=== PATIENT | female | born 1990 | race Caucasian/White ===

== ENCOUNTER 2020-01-19 18:07 | Emergency (ER) | payer BC, SELFPAY ==
--- NOTE | ~2020-01-19 | XR_ITS ---
EXAMINATION: XR wrist LT min 3V DATE: 01/19/2020 18:40 INDICATION: Left wrist pain TECHNIQUE: Posteroanterior, ulnar deviation, oblique, and lateral views of the left wrist were obtain ed. COMPARISON: None available FINDINGS: There is no fracture, dislocation, or subluxation. The bones, soft tissues, and joint space s are normal. IMPRESSION: 1. No acute osseous abnormality. Reviewed, dictated and finalized at location A.
--- NOTE | ~2020-01-19 | XR_ITS ---
EXAMINATION: XR finger 1st RT min 2V INDICATION: Right first finger pain TECHNIQUE: Three views of the right first finger are obtained. COMPARISON: None available FINDINGS: There is no fracture, dislocation, or subluxation. The bones, soft tissues, and joint space s are normal. IMPRESSION: 1. No acute osseous abnormality. Reviewed, dictated and finalized at location A.
--- NOTE | ~2020-01-19 | XR_ITS ---
EXAMINATION: XR humerus LT INDICATION: Left arm pain TECHNIQUE: Two views of the left humerus are obtained. COMPARISON: None available FINDINGS: There is no fracture, dislocation, or subluxation. The bones, soft tissues, and joint space s are normal. IMPRESSION: No acute osseous abnormality. Reviewed, dictated and finalized at location A.
--- NOTE | ~2020-01-19 | XR_ITS ---
EXAMINATION: XR hand LT min 3V INDICATION: Left hand pain TECHNIQUE: Three views of the left hand are obtained. COMPARISON: None available FINDINGS: There is no fracture, dislocation, or subluxation. The bones, soft tissues, and joint space s are normal. IMPRESSION: 1. No acute osseous abnormality. Reviewed, dictated and finalized at location A.
--- NOTE | ~2020-01-19 | XR_ITS ---
EXAMINATION: XR chest 2V DATE: 01/19/2020 19:20 INDICATION: Chest pain TECHNIQUE: PA and lateral views of the chest are obtained. COMPARISON: None available FINDINGS: The lungs are free of acute opacities. There is no pleural effusion or pneumothorax. The ca rdiomediastinal silhouette is normal. The visualized bones and soft tissues are unremarkable. IMPRESSION: 1. No acute cardiopulmonary abnormality. Reviewed, dictated and finalized at location A.
[2020-01-19 18:06] VITALS: BP 138/97; PULSE 95; RESP 17; TEMP 37.2; O2SAT 98
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
[2020-01-19] MEDS: TETANUS,DIPHTHERIA,AC PERTUSSIS ADULT 0.5 ML (ADACEL) IM (19:23)
[2020-01-19] MEDS: KETOROLAC 30 MG/ML VIAL (*BKC) IV PUSH (19:25)
[2020-01-19 20:31] VITALS: BP 121/85; PULSE 83; RESP 20; TEMP 36.6; O2SAT 98
== END 2020-01-19 20:40 | disposition home or self-care (01) ==
DX: S60.512A Abrasion of left hand, initial encounter (principal); V43.52XA Car driver injured in collision with other type car in traffic accident, initial encounter; Z23 Encounter for immunization
CPT/HCPCS: 71046; 73060; 73110; 73130; 73140; 90471; 90715; 96374; 99284; A9270; J1885

== ENCOUNTER 2020-10-04 06:58 | Outpatient (NON) | payer BC, SELFPAY ==
[2020-10-04 18:22] LABS: SARS-CoV-2 RNA PCR Negative
== END 2020-10-04 06:59 ==
PROVIDERS: PCP Emergency Medicine; Visit Provider Emergency Medicine
DX: R68.89 Other general symptoms and signs (principal); Z20.828 Contact with and (suspected) exposure to other viral communicable diseases
CPT/HCPCS: 87635; C9803; U0003

== ENCOUNTER 2023-09-22 11:53 | Emergency (ER) | payer BC, SELFPAY ==
--- NOTE | ~2023-09-22 | US_ITS ---
US OB <=14 wk fetus w TV 09/22/2023 14:30 Indication: Pelvic pain and bleeding. Evaluate for ectopic . Procedure: High-resolution Limited obstetrical ultrasound using transabdominal and endovaginal techni que Comparison: No prior studies for comparison. Findings: Uterus measures 7.1 x 3.7 x 4.7 cm. Endometrium measures 9 mm. No intrauterine gestational sac is seen. There is nabothian cysts. There is free fluid in the pelvis. Right ovary measures 5.3 x 3 x 2.5 cm with normal vascularity. There is a 3 cm right ovarian cyst. Left ovary measures 1.7 x 1.3 x 1.1 cm with normal vascularity. Impression: 1: No evidence for intrauterine . Differential diagnosis includes very early intrauterine pr egnancy, ectopic and failed . Recommend follow-up with serial quantitative beta-hC G levels and ultrasound as clinically indicated. 2: Right ovarian cyst measuring 3 cm. Reviewed, dictated and finalized at location B. [facility]IC [facility] REFEREE Impression: 1: No evidence for intrauterine . Differential diagnosis includes very early intrauterine , ectopic and failed . Recommen d follow-up with serial quantitative beta-hCG levels and ultrasound as clinical ly indicated. 2: Right ovarian cyst measuring 3 cm.
[2023-09-22 12:03] VITALS: BP 147/75; PULSE 87; RESP 20; TEMP 36.7; O2SAT 99
--- NOTE | 2023-09-22 12:34 | ED.ABDPAIN ---
HPI - Abdominal Pain General Chief Complaint: Abdominal Pain Stated Complaint: pelvic pain Time Seen by Provider: 09/22/23 12:12 Source: patient Mode of arrival: ambulatory Limitations: no limitations History of Present Illness HPI narrative: Patient is a 32-year-old female who presents to the ED with report of lower abdominal/ pelvic pain. Patient reports she developed pain this morning which progressively worsened after going to work where she also began experiencing vaginal bleeding. She then prompted here. She states LNMP was around 11/6. Patient is currently trying to conceive, but has not had a positive test yet. She has not tried anything for the pain. Reports some nausea, dysuria, denies vomiting. Denies fevers. Denies hematuria. Patient's bedside testing positive in the ED. , Hx of 1 previous micarriage. Related Data Home Medications Medication Instructions Recorded Confirmed vitamin no.167-folic acid tablet PO .QD 08/18/23 09/10/23 400 mcg-dha 25 mg chewable tablet (One-A-Day ) Allergies Allergy/AdvReac Type Severity Reaction Status Date / Time ciprofloxacin Allergy Unknown Rash Verified 09/22/23 12:13 Sulfa (Sulfonamide Allergy Unknown Anaphylactic Verified 09/22/23 12:13 Antibiotics) Shock Review of Systems Review of Systems: CONSTITUTIONAL: Denies fever, chills, or sweats. CARDIOVASCULAR: Denies chest pain. RESPIRATORY: Denies dyspnea. GASTROINTESTINAL: See HPI. GENITOURINARY: See HPI. All systems reviewed & are unremarkable except as noted in HPI and below PMFSH Past Medical History Medical History BMI 45.0-49.9, adult Depression Encounter for removal of intrauterine contraceptive device History of thrombocytopenia Lyme disease (~2015) Surgical History Surgical History H/O gastric sleeve History of gynecological procedure (~12/2019) steven iud insertion History of gynecological procedure (~11/2019) steven iud removal History of gynecological procedure (02/27/16) steven iud insertion Hx of dilation and curettage D&C - miscarriage @ 2 1/2 months S/P reconstruction of ligament of knee 2017 knee surgery MPFL reconstruction Family History Family History Grandparent Family history of lung cancer Father Family history of rheumatoid arthritis Mother Family history of osteoarthritis Other Diabetes mellitus Family history of arthritis Hypertension Social History Social History Smoking status: Never smoker Alcohol intake: former Alcohol use details: only 1-2 a year before Substance use: never Substance use type: does not use Lack of Transportation: No Lack of Food: Never True Current Housing: I Have Housing Concerned About Future Housing: No Difficulty Paying Gas/Electric Bills: YES Difficulty Paying for Meds: No Currently Unemployed: No Education: High School Diploma/GED Difficulty w/ Childcare or Family Care: No Living arrangements: with family Additional living arrangements comments: Occupation/Education: occupation 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 HEAD: Normocephalic, atraumatic. NECK: Supple. No adenopathy, no masses. RESPIRATORY: Airway patent, respirations nonlabored. Clear to auscultation bilaterally, no rales, rhonchi, wheezing. CARDIOVASCULAR: Regular rate and rhythm without murmurs, rubs, or gallops. Radial pulses 2+ an
[2023-09-22 12:49] LABS: Basophils Absolute Auto 0.1 K/mm3 (0.0-0.1); Basophils Percent Auto 0.6 % (0.2-1.2); Eosinophils Absolute Auto 0.1 K/mm3 (0-0.3); Eosinophils Percent Auto 1.2 % (0-4.4); Hematocrit 36.7 % (37.0-47.0); Hemoglobin 11.8 g/dL (12.0-15.0); Immature Granulocyte Absolute 0.03 K/mm3 (0.00-0.031); Immature Granulocyte Percent A 0.3 % (0-0.5); Lymphocytes Absolute Auto 1.77 K/mm3 (0.9-3.2); Lymphocytes Percent Auto 17.6 % (18.3-44.2); Mean Corpuscular HGB Conc 32.2 g/dl (32-36); Mean Corpuscular Hemoglobin 30.1 pg (26-34); Mean Corpuscular Volume 93.6 fl (80-100); Mean Platelet Volume 10.6 fl (7.4-10.4); Monocytes Absolute Auto 0.5 K/mm3 (0.1-0.6); Monocytes Percent Auto 5.2 % (2.6-8.5); Neutrophils Absolute Auto 7.6 K/mm3 (1.3-6.7); Neutrophils Percent Auto 75.1 % (45.5-73.1); Platelet Count Result 207 k/mm3 (150-375); Red Blood Count 3.92 M/mm3 (4.2-5.4); Red Cell Distribution Width 13.2 % (11.5-14.5); White Blood Count 10.1 K/mm3 (4.5-10.0)
[2023-09-22 12:53] LABS: Appearance Urine Turbid (Clear); Bacteria Urine 4+ /hpf; Bilirubin Urine Negative (Negative); Blood Urine 3+ (Negative); Color Urine Yellow (Yellow); Glucose Urine UA Negative (Negative); Ketones Urine Trace mg/dL (Negative); Leukocyte Esterase Ur 1+ LEU/UL (Negative); Nitrate Urine Positive (Negative); Non Pathogenic Casts 0-2; Protein Urine Negative (Negative); RBC Urine 51-100 /hpf (0-2); Specific Grav Ur 1.019 (1.001-1.035); Squamous Epithelial Cell Urine Moderate /hpf (Few); Urobilinogen Urine 0.2 mg/dL (<2.0)
[2023-09-22 12:59] LABS: Alanine Aminotransferase 22 U/L (6-35); Alkaline Phosphatase 107 U/L (38-126); Anion Gap 10 mmol/L (8-16); Aspartate Amino Transferase 29 U/L (14-36); Bilirubin,Total 0.9 mg/dL (0.2-1.3); Blood Urea Nitrogen 11 mg/dL (7-17); Calcium 9.1 mg/dL (8.4-10.2); Carbon Dioxide 24 mmol/L (22-30); Chloride 102 mmol/L (98-107); Estimated CRCL calculation 162 ml/min; Estimated Glomerular Filt Rate > 60; Glucose 96 mg/dL (65-110); Potassium 3.8 mmol/L (3.4-5.0); Sodium 136 mmol/L (137-145)
[2023-09-22] MEDS: SODIUM CHLORIDE 0.9% IV 1,000 ML 999 ML IV CONT (13:09)
[2023-09-22 13:15] LABS: Beta HCG Quantitative 585.84 mIU/ML
[2023-09-22 13:42] LABS: Add Urine Microscopic? YES
[2023-09-22 16:10] VITALS: BP 121/76; PULSE 75; RESP 20; O2SAT 99
== END 2023-09-22 16:11 | disposition home or self-care (01) ==
PROVIDERS: Emergency Provider Physician Assistant; PCP Family Medicine
DX: O20.0 Threatened abortion (principal); Z3A.00 Weeks of gestation of pregnancy not specified; O23.41 Unspecified infection of urinary tract in pregnancy, first trimester
CPT/HCPCS: 36415; 76801; 76817; 80053; 81001; 81025; 84702; 85025; 85461; 86850; 86900; 86901; 87077; 87086; 87186; 96361; 96365; 99284; J0696; J7030

== ENCOUNTER 2023-09-24 08:20 | Outpatient (CLI) | payer BC, SELFPAY | END 2023-09-24 08:21 | disposition home or self-care (01) | LOC: ANHLAB 08:22 | PROVIDERS: PCP Family Medicine; Visit Provider Physician Assistant | DX: O20.0 Threatened abortion (principal); Z3A.00 Weeks of gestation of pregnancy not specified | CPT/HCPCS: 36415; 84702 ==

== ENCOUNTER 2023-09-26 11:59 | Outpatient (CLI) | payer BC, SELFPAY | END 2023-09-26 12:00 | disposition home or self-care (01) | LOC: ANHLAB 12:00 | PROVIDERS: PCP Family Medicine; Visit Provider Obstetrics & Gynecology | DX: O20.0 Threatened abortion (principal); Z3A.00 Weeks of gestation of pregnancy not specified | CPT/HCPCS: 36415; 84702 ==

== ENCOUNTER 2023-09-29 15:56 | Outpatient (CLI) | payer BC, SELFPAY | END 2023-09-29 15:57 | disposition home or self-care (01) | LOC: ANHLAB 15:57 | PROVIDERS: Visit Provider Obstetrics & Gynecology | DX: O20.0 Threatened abortion (principal); Z3A.00 Weeks of gestation of pregnancy not specified | CPT/HCPCS: 36415; 84702 ==

== ENCOUNTER 2023-09-30 10:05 | Outpatient (CLI) | payer BC, SELFPAY ==
--- NOTE | ~2023-09-30 | US_ITS ---
US OB <=14 wk fetus w TV 09/30/2023 11:03 Indication: Threatened . Procedure: High-resolution early obstetrical ultrasound using transabdominal and transvaginal techniq ue Comparison: Ultrasound dated 09/22/2023 Findings: Uterus measures 6.7 x 3.7 x 2.9 cm. No evidence for gestational sac or pole. Endometr ium measures 7 mm. Right ovary measures 4.1 x 4.2 x 3.9 cm and contains a complicated septated 3.4 cm cyst. Left ovary is unremarkable measuring 2 x 1.8 x 1 cm. Small amount of free fluid in the posteri or cul-de-sac. Impression: 1: No evidence for intrauterine . Correlate with beta-hCG levels and follow-up ultrasound as clinically warranted. 2: Septated 3.4 cm right ovarian cyst. Reviewed, dictated and finalized at [facility]. END TESTER Impression: 1: No evidence for intrauterine . Correlate with beta-hCG levels and f ollow-up ultrasound as clinically warranted. 2: Septated 3.4 cm right ovarian cyst.
== END 2023-09-30 10:06 ==
PROVIDERS: PCP Family Medicine; Visit Provider Obstetrics & Gynecology
DX: O20.0 Threatened abortion (principal); Z3A.00 Weeks of gestation of pregnancy not specified; N83.201 Unspecified ovarian cyst, right side
CPT/HCPCS: 76801; 76817

== ENCOUNTER 2023-10-01 14:08 | Outpatient (CLI) | payer BC, SELFPAY ==
[2023-10-01 14:49] LABS: Basophils Absolute Auto 0.1 K/mm3 (0.0-0.1); Basophils Percent Auto 0.9 % (0.2-1.2); Eosinophils Absolute Auto 0.1 K/mm3 (0-0.3); Eosinophils Percent Auto 1.8 % (0-4.4); Hemoglobin 11.5 g/dL (12.0-15.0); Immature Granulocyte Absolute 0.02 K/mm3 (0.00-0.031); Immature Granulocyte Percent A 0.3 % (0-0.5); Lymphocytes Absolute Auto 1.69 K/mm3 (0.9-3.2); Lymphocytes Percent Auto 21.8 % (18.3-44.2); Mean Corpuscular HGB Conc 31.9 g/dl (32-36); Mean Corpuscular Hemoglobin 30.3 pg (26-34); Mean Platelet Volume 10.8 fl (7.4-10.4); Monocytes Absolute Auto 0.6 K/mm3 (0.1-0.6); Monocytes Percent Auto 7.6 % (2.6-8.5); Neutrophils Absolute Auto 5.2 K/mm3 (1.3-6.7); Neutrophils Percent Auto 67.6 % (45.5-73.1); Platelet Count Result 156 k/mm3 (150-375); Red Blood Count 3.79 M/mm3 (4.2-5.4); Red Cell Distribution Width 13.2 % (11.5-14.5); White Blood Count 7.8 K/mm3 (4.5-10.0)
[2023-10-01 14:57] LABS: Alanine Aminotransferase 25 U/L (6-35); Albumin Level 3.9 g/dL (3.5-5.1); Alkaline Phosphatase 93 U/L (38-126); Anion Gap 8 mmol/L (8-16); Aspartate Amino Transferase 25 U/L (14-36); Bilirubin,Total 0.8 mg/dL (0.2-1.3); Blood Urea Nitrogen 13 mg/dL (7-17); Calcium 8.8 mg/dL (8.4-10.2); Carbon Dioxide 24 mmol/L (22-30); Chloride 105 mmol/L (98-107); Estimated Glomerular Filt Rate > 60; Glucose 99 mg/dL (65-110); Potassium 3.8 mmol/L (3.4-5.0); Sodium 137 mmol/L (137-145)
== END 2023-10-01 14:09 | disposition home or self-care (01) ==
LOC: ANHLAB 14:09
PROVIDERS: Visit Provider Obstetrics & Gynecology
DX: O36.80X0 Pregnancy with inconclusive fetal viability, not applicable or unspecified (principal); Z3A.00 Weeks of gestation of pregnancy not specified
CPT/HCPCS: 36415; 80053; 84702; 85025

== ENCOUNTER 2023-10-03 12:49 | Outpatient (CLI) | payer BC, SELFPAY | END 2023-10-03 12:50 | disposition home or self-care (01) | LOC: ANHLAB 12:51 | PROVIDERS: Visit Provider Obstetrics & Gynecology | DX: O36.80X0 Pregnancy with inconclusive fetal viability, not applicable or unspecified (principal); Z3A.00 Weeks of gestation of pregnancy not specified | CPT/HCPCS: 36415; 84702 ==

== ENCOUNTER 2023-10-07 15:13 | Outpatient (CLI) | payer BC, SELFPAY | END 2023-10-07 15:14 | disposition home or self-care (01) | PROVIDERS: Visit Provider Obstetrics & Gynecology | DX: O36.80X0 Pregnancy with inconclusive fetal viability, not applicable or unspecified (principal) | CPT/HCPCS: 36415; 84702 ==

== ENCOUNTER 2023-10-14 15:26 | Outpatient (CLI) | payer BC, SELFPAY | END 2023-10-14 15:27 | disposition home or self-care (01) | LOC: ANHLAB 15:27 | PROVIDERS: Visit Provider Obstetrics & Gynecology | DX: O36.80X0 Pregnancy with inconclusive fetal viability, not applicable or unspecified (principal) | CPT/HCPCS: 36415; 84702 ==

== ENCOUNTER 2023-10-29 15:03 | Outpatient (RCR) | payer BC, SELFPAY ==
[2023-10-21 17:07] LABS: Beta HCG Quantitative 112.62 mIU/ML
[2023-10-29 16:03] LABS: Beta HCG Quantitative 31.28 mIU/ML
== END 2024-01-19 23:59 | disposition home or self-care (01) ==
LOC: ANHLAB 15:03
PROVIDERS: Visit Provider Obstetrics & Gynecology
DX: O02.1 Missed abortion (principal)
CPT/HCPCS: 36415; 84702

== ENCOUNTER 2023-11-10 15:28 | Outpatient (CLI) | payer BC, SELFPAY ==
--- NOTE | ~2023-11-10 | XR_ITS ---
EXAMINATION: XR abdomen/kub 1V DATE: 11/10/2023 15:50 INDICATION: Unspecified abdominal pain. TECHNIQUE: A supine view of the abdomen on 2 radiographs was obtained. COMPARISON: CT dated 08/07/2013 FINDINGS: Moderate amount of stool scattered throughout the colon. No dilated loops of gas-filled bowel to sugg est obstruction. No suspicious calcifications in the abdomen or pelvis. Mild lumbar levocurvature wit h mild spondylosis. IMPRESSION: 1. Normal bowel gas pattern. Reviewed, dictated and finalized at location A. ENFORCEMENT DIRECTOR
== END 2023-11-10 15:29 ==
PROVIDERS: PCP Nurse Practitioner Family; Visit Provider Nurse Practitioner Family
DX: R10.9 Unspecified abdominal pain (principal)
CPT/HCPCS: 74018

== ENCOUNTER 2023-11-10 15:49 | Outpatient (CLI) | payer BC, SELFPAY ==
[2023-11-10 20:30] LABS: Alanine Aminotransferase 18 U/L (6-35); Alkaline Phosphatase 96 U/L (38-126); Anion Gap 7 mmol/L (8-16); Aspartate Amino Transferase 32 U/L (14-36); Bilirubin,Total 0.8 mg/dL (0.2-1.3); Blood Urea Nitrogen 21 mg/dL (7-17); Calcium 9.2 mg/dL (8.4-10.2); Carbon Dioxide 28 mmol/L (22-30); Chloride 102 mmol/L (98-107); Estimated Glomerular Filt Rate > 60; Glucose 89 mg/dL (65-110); Potassium 4.1 mmol/L (3.4-5.0); Sodium 137 mmol/L (137-145)
[2023-11-10 21:04] LABS: Beta HCG Quantitative 4.19 mIU/ML
[2023-11-11 06:13] LABS: Platelet Count Result 251 k/mm3 (150-375); White Blood Count 10.3 K/mm3 (4.5-10.0)
== END 2023-11-10 15:50 | disposition home or self-care (01) ==
LOC: ANHGOSHLAB 15:54
PROVIDERS: PCP Nurse Practitioner Family; Visit Provider Obstetrics & Gynecology
DX: O36.80X0 Pregnancy with inconclusive fetal viability, not applicable or unspecified (principal); R10.9 Unspecified abdominal pain; Z3A.00 Weeks of gestation of pregnancy not specified
CPT/HCPCS: 36415; 80053; 84702; 85025

== ENCOUNTER 2024-01-06 04:15 | Emergency (ER) | payer BC, SELFPAY ==
[2024-01-06 04:25] VITALS: BP 125/87; PULSE 77; RESP 18; TEMP 36.3; O2SAT 99
[2024-01-06 06:39] VITALS: BP 107/64; PULSE 81; RESP 12; O2SAT 100
--- NOTE | 2024-01-06 07:15 | ED.SKABFB ---
HPI - Skin/Abscess/Foreign Bdy General Chief complaint: Skin/Abscess/Foreign Body Stated complaint: allergic reaction Time Seen by Provider: 01/06/24 07:05 History of Present Illness HPI narrative: Patient is a healthy 33-year-old female here with concern for multiple spider bites. She states that around 3:00 a.m. this morning she woke up to a sharp pricking sensation in her left upper extremity. She woke up and noted multiple welts over her left upper extremity, abdomen, legs. She then noted that she had some hives over her chest. She notes that the hives and the bites over her trunk and lower extremity all seemed to have resolved. She is currently complaining of significant pain, redness, warmth to the left bicep region. She denies history of prior cellulitis or abscesses. She denies any associated fever chills. She has not taken anything for the symptoms. She does note that she found a spider in her bed and believes that it likely bit her causing her symptoms. Related Data Allergies Allergy/AdvReac Type Severity Reaction Status Date / Time ciprofloxacin Allergy Unknown Rash Verified 11/07/23 11:39 Sulfa (Sulfonamide Allergy Unknown Anaphylactic Verified 11/07/23 11:39 Antibiotics) Shock Review of Systems Review of Systems: All systems reviewed & are unremarkable except as noted in HPI and below PMFSH Past Medical History Medical History BMI 45.0-49.9, adult Depression Encounter for removal of intrauterine contraceptive device History of thrombocytopenia Lyme disease (~2015) Missed Surgical History Surgical History H/O gastric sleeve History of gynecological procedure (~12/2019) steven iud insertion History of gynecological procedure (~11/2019) steven iud removal History of gynecological procedure (02/27/16) steven iud insertion Hx of dilation and curettage D&C - miscarriage @ 2 1/2 months S/P reconstruction of ligament of knee 2017 knee surgery MPFL reconstruction Family History Family History Grandparent Family history of lung cancer Father Family history of rheumatoid arthritis Mother Family history of osteoarthritis Other Diabetes mellitus Family history of arthritis Hypertension Social History Social History Smoking status: Never smoker Alcohol intake: former Alcohol use details: only 1-2 a year before Substance use: never Substance use type: does not use Lack of Transportation: No Lack of Food: Never True Current Housing: I Have Housing Concerned About Future Housing: No Difficulty Paying Gas/Electric Bills: YES Difficulty Paying for Meds: No Currently Unemployed: No Education: High School Diploma/GED Difficulty w/ Childcare or Family Care: No Living arrangements: with family Additional living arrangements comments: Occupation/Education: occupation Additional occupation/education comments: [employer] Gender identity (if verbalized by the patient): Female Sexual Orientation (if Verbalized by the Patient): Straight or Heterosexual Exam Narrative: GENERAL: Well-appearing, well-nourished, and in no acute distress. HEAD: Normocephalic, atraumatic. EYES: PERRLA and EOMI. ENT: Nares clear. Mucous membranes moist. NECK: Supple. CHEST: Clear to auscultation. No respiratory distress. HEART: Regular rate and rhythm. Normal peripheral pulses. ABDOMEN: Soft, nontender, nondistended. EXTREMITIES: Normal range of motion. No edema. SKIN: Warm, dry, no rash Appreciated over chest. No lesions appreciated over trunk or lower extremities. Patient has a 2 cm circular area of erythema and tenderness over the distal right biceps region. Normal range of motion of the upper extremity with strong
== END 2024-01-06 08:02 | disposition home or self-care (01) ==
LOC: ANHED 07:50
PROVIDERS: Emergency Provider Student in an Organized Health Care Education/Training Program; PCP Nurse Practitioner Family
DX: L03.114 Cellulitis of left upper limb (principal)
CPT/HCPCS: 99283

== ENCOUNTER 2024-12-29 08:56 | Outpatient (CLI) | payer OTHER, SELFPAY ==
--- NOTE | ~2024-12-29 | US_ITS ---
EXAM: ABDOMEN ULTRASOUND HISTORY: R10.11 - Right upper quadrant pain COMPARISON: None FINDINGS: LIVER: The liver is unremarkable in echogenicity and size measuring 15cm in longitudinal dimension. The portal vein is patent demonstrating hepatopedal flow. The contour of the liver surface is smooth GALLBLADDER: No stones are identified within the gallbladder. Layering sludge is noted. No gallbladder wall thickening or pericholecystic fluid. BILE DUCTS: Common bile duct measures 3.7mm. PANCREAS: Limited evaluation of the pancreas secondary to overlying bowel gas SPLEEN: The spleen is unremarkable in echogenicity and size measuring 10.6cm in longitudinal dimensio n. RIGHT KIDNEY: 10.6 cm. In length. No hydronephrosis or bulky renal calculi. An anechoic avascular well-circumscribed structure is identified within the interpolar region of the right kidney consistent with a simple cyst measuring 11 x 12 x 8 mm. LEFT KIDNEY: 11cm in length. No hydronephrosis or renal calculi. VASCULATURE : The abdominal aorta is nonaneurysmal. The IVC is patent. IMPRESSION: Evaluation of the pancreas is limited by overlying bowel gas. Simple cyst within the right kidney for which no further follow-up is needed. Otherwise, unremarkable sonographic evaluation of the abdomen, as detailed above. Reviewed, dictated and finalized at location A. NOSTIC MEDICAL SONOGRAPHER IMPRESSION: Evaluation of the pancreas is limited by overlying bowel gas. Simple cyst within the right kidney for which no further follow-up is needed. Otherwise, unremarkable sonographic evaluation of the abdomen, as detailed silas bolden.
== END 2024-12-29 08:57 | disposition home or self-care (01) ==
PROVIDERS: PCP Family Medicine; Visit Provider Physician Assistant Medical
DX: R14.0 Abdominal distension (gaseous) (principal); N28.1 Cyst of kidney, acquired
CPT/HCPCS: 76700

== ENCOUNTER 2024-12-29 09:23 | Outpatient (CLI) | payer OTHER, SELFPAY ==
[2024-12-29 19:47] LABS: Basophils Absolute Auto 0.1 K/mm3 (0.0-0.1); Basophils Percent Auto 0.7 % (0.2-1.2); Eosinophils Absolute Auto 0.1 K/mm3 (0-0.3); Eosinophils Percent Auto 1.3 % (0-4.4); Immature Granulocyte Absolute 0.02 K/mm3 (0.00-0.031); Immature Granulocyte Percent A 0.3 % (0-0.5); Lymphocytes Absolute Auto 1.97 K/mm3 (0.9-3.2); Lymphocytes Percent Auto 29.2 % (18.3-44.2); Mean Corpuscular HGB Conc 32.5 g/dl (32-36); Mean Corpuscular Hemoglobin 30.2 pg (26-34); Mean Corpuscular Volume 92.8 fl (80-100); Mean Platelet Volume 10.4 fl (7.4-10.4); Monocytes Absolute Auto 0.6 K/mm3 (0.1-0.6); Monocytes Percent Auto 9.3 % (2.6-8.5); Neutrophils Percent Auto 59.2 % (45.5-73.1); Platelet Count Result 173 k/mm3 (150-375); Red Blood Count 4.31 M/mm3 (4.2-5.4); Red Cell Distribution Width 13.4 % (11.5-14.5); White Blood Count 6.8 K/mm3 (4.5-10.0)
[2024-12-29 21:06] LABS: Alanine Aminotransferase 101 U/L (6-35); Alkaline Phosphatase 81 U/L (38-126); Amylase 77 U/L (30-110); Anion Gap 5 mmol/L (4-12); Aspartate Amino Transferase 91 U/L (14-36); Bilirubin,Total 1.4 mg/dL (0.2-1.3); Blood Urea Nitrogen 16 mg/dL (7-17); Carbon Dioxide 32 mmol/L (22-30); Chloride 98 mmol/L (98-107); Estimated Glomerular Filt Rate > 60; Glucose 72 mg/dL (65-110); Lipase 106 U/L (23-300); Potassium 4.2 mmol/L (3.4-5.0); Sodium 135 mmol/L (137-145)
== END 2024-12-29 09:24 | disposition home or self-care (01) ==
LOC: ANHGOSHLAB 09:34
PROVIDERS: PCP Family Medicine; Visit Provider Physician Assistant Medical
DX: R10.11 Right upper quadrant pain (principal)
CPT/HCPCS: 36415; 80053; 82150; 83690; 85025

== ENCOUNTER 2025-09-15 11:21 | Outpatient (CLI) | payer OTHER, SELFPAY ==
--- OUTSIDE RECORDS SUMMARY | 2025-09-15 12:31 | XMS_ITS | Clinical Summary ---
Author Organization [facility] Address [address] [place] [id number] Care Team Providers Care Vehicle Modification Technician Name Role Phone Unavailable Primary Care Provider Unavailabl e Medications No known medications Active Problems No known active problems Social History Tobacco Use Types Packs/Day Years Used Date Smoking Tobacco: Never Smokeless Tobacco: Never Tobacco Cessation:Counseling Given: Yes Alcohol Use Standard Drinks/Week Comments Never 0 (1 standard drink = 0.6 oz pur e alcohol) Alcohol Use Answer Date Recorded Frequency of Alcohol Consumption Not on file 05/15/2024 Average Number of Drinks Not on file 024 Frequency of Binge Drinking Not on file 05/03 Alcohol Use Status Never 05/15/2024 Average alcohol consumption Not on file 05/03 Comments Unknown Sex and Gender Information Value Date Recorded Sex Assigned at Not on file Legal Sex Female 4:41 PM CDT Gender Identity Not on file Sexual Orientation Not on file Last Filed Vital Signs Vital Sign Reading Time Taken Comments Blood Pressure 120/82 05/15/2024 4:53 PM CDT Pulse 76 05/15/2024 4:53 PM CDT Temperature 36.1 C (97 F) 05/15/2024 4:53 PM CDT Respiratory Rate 16 05/15/2024 4:53 PM CDT Oxygen Saturation 98% 05/15/2024 4:53 PM CDT Inhaled Oxygen Concentration - - Weight 126.1 kg (278 lb) 05/15/2024 4:53 PM CDT Height 170.2 cm (5' 7) 05/15/2024 4:53 PM CDT Body Mass Index 43.54 05/15/2024 4:53 PM CDT Plan of Treatment Health Maintenance Due Date Last Done Comments HIV Screening 1988 Hepatitis C Screening ages 1 8 to 79 once 1988 MMR VACCINES (1 of 1 - Stand loreto series) 1989 YEARLY WELLNESS EXAM 1991 DEPRESSION SCREENING 2000 Varicella Vaccine (1 of 2 - 13+ 2-dose series) 2001 HPV VACCINES (1 - 3-dose series) 2003 ADULT TETANUS 2007 HEPATITIS B VACCINES (1 of 3 - 19+ 3-dose series) 2007 CERVICAL CANCER SCREENING 2009 Influenza Vaccine 06/03/2025 COVID-19 Immunization (1 - 2 024-25 season) 2025 Zoster Vaccine (Recombinant Vaccine) (1 of 2) 2038 HEPATITIS A VACCINES Aged Out No long er eligible based on patient's age to complete this topic HIB VACCINES Aged Out No longer eligi ble based on patient's age to complete this topic IPV VACCINES Aged Out No longer eligi ble based on patient's age to complete this topic MENINGOCOCCAL VACCINE Aged Out No bobby sonya eligible based on patient's age to complete this topic Meningococcal B Vaccine Aged Out No l onger eligible based on patient's age to complete this topic Pneumococcal Vaccine: Peds t o 50 & At-Risk Patients Aged Out No longer eligible b ased on patient's age to complete this topic ROTAVIRUS VACCINES Aged Out No longer eligible based on patient's age to complete this topic
[2025-09-15 12:32] LABS: Beta HCG Quantitative 103.23 mIU/ML
[2025-09-15 12:46] LABS: Hepatitis B Surface Antigen Negative (Negative); Syphilis IgG/IgM Antibody Non-Reactive (Nonreactive)
[2025-09-15 13:03] LABS: HIV 1/2 Ab P24 Ag Result Negative (Negative)
[2025-09-15 16:44] LABS: Hematocrit 38.4 % (37.0-47.0); Hemoglobin 12.6 g/dL (12.0-15.0); Immature Granulocyte Percent A 0.3 % (0-0.5); Lymphocytes Absolute Auto 2.10 K/mm3 (0.9-3.2); Mean Corpuscular HGB Conc 32.8 g/dl (32-36); Mean Corpuscular Hemoglobin 30.1 pg (26-34); Mean Corpuscular Volume 91.6 fl (80-100); Nucleated Red Blood Cells Absolute Auto 0.000 K/mm3 (0.0-0.012); Nucleated Red Blood Cells Perc 0.0 % (0.0-0.2); Platelet Count Result 198 k/mm3 (150-375); Red Blood Count 4.19 M/mm3 (4.2-5.4); White Blood Count 10.2 K/mm3 (4.5-10.0)
[2025-09-16 06:08] LABS: Varicella-Zoster Ab, IgG Reactive (Non Reactive)
[2025-09-16 09:08] LABS: Cytomegalovirus (CMV) Ab, IgG <0.60 U/mL (0.00-0.59)
[2025-09-19 11:09] LABS: Parvovirus B19, IgG 5.7 index (0.0-0.8); Parvovirus B19, IgM 0.2 index (0.0-0.8)
== END 2025-09-15 11:22 | disposition home or self-care (01) ==
LOC: ANHLAB 11:24
PROVIDERS: PCP Family Medicine; Visit Provider Obstetrics & Gynecology
DX: N91.2 Amenorrhea, unspecified (principal)
CPT/HCPCS: 36415; 84702; 85025; 86593; 86644; 86703; 86747; 86762; 86787; 86850; 86900; 86901; 87086; 87186; 87340; G0432

== ENCOUNTER 2025-09-19 10:22 | Outpatient (CLI) | payer OTHER, SELFPAY | END 2025-09-19 10:23 | disposition home or self-care (01) | PROVIDERS: PCP Family Medicine; Visit Provider Obstetrics & Gynecology | DX: N92.6 Irregular menstruation, unspecified (principal) | CPT/HCPCS: 36415; 84702 ==

== ENCOUNTER 2025-09-23 12:04 | Outpatient (CLI) | payer OTHER, SELFPAY ==
--- OUTSIDE RECORDS SUMMARY | 2025-09-23 12:07 | XMS_ITS | Clinical Summary ---
Author Organization [facility] Address [address] [place] [id number] Care Team Providers Care Rabies Inspector Name Role Phone Unavailable Primary Care Provider [...]
== END 2025-09-23 12:05 | disposition home or self-care (01) ==
LOC: ANHLAB 12:05
PROVIDERS: PCP Family Medicine; Visit Provider Obstetrics & Gynecology
DX: N92.6 Irregular menstruation, unspecified (principal)
CPT/HCPCS: 36415; 84702

== ENCOUNTER 2025-09-28 10:18 | Outpatient (CLI) | payer OTHER, SELFPAY ==
--- OUTSIDE RECORDS SUMMARY | 2025-09-28 11:00 | XMS_ITS | Clinical Summary ---
Author Organization [facility] Address [address] [place] [id number] Care Team Providers Care Disassembler Product Name Role Phone Unavailable Primary Care Provider [...]
== END 2025-09-28 10:19 | disposition home or self-care (01) ==
LOC: ANHLAB 10:19
PROVIDERS: PCP Family Medicine; Visit Provider Obstetrics & Gynecology
DX: O20.0 Threatened abortion (principal); Z3A.00 Weeks of gestation of pregnancy not specified
CPT/HCPCS: 36415; 84702

== ENCOUNTER 2025-10-05 06:51 | Outpatient (CLI) | payer OTHER, SELFPAY | END 2025-10-05 06:52 | disposition home or self-care (01) | PROVIDERS: PCP Family Medicine; Visit Provider Obstetrics & Gynecology | DX: N91.2 Amenorrhea, unspecified (principal) | CPT/HCPCS: 36415; 84702 ==

== ENCOUNTER 2025-10-06 11:21 | Outpatient (CLI) | payer OTHER, SELFPAY | END 2025-10-06 11:22 | disposition home or self-care (01) | PROVIDERS: PCP Family Medicine; Visit Provider Obstetrics & Gynecology | DX: N39.0 Urinary tract infection, site not specified (principal) | CPT/HCPCS: 87077; 87086; 87186 ==

== ENCOUNTER 2025-10-17 00:31 | Day surgery (SDC) | payer OTHER, SELFPAY ==
[2025-10-13 15:24] VITALS: BMI 43.1
--- NOTE | 2025-10-13 15:32 | PC.NURSE ---
[facility] has started construction of its new state of the art ER which will open Spring 2026. With this, we anticipate parking may be a challenge for some our surgical patients and families. Parking spaces are limited but are available for all Surgical, obstetrics, and ER patients sharing this lot. If you arrive and find you are having a hard time finding a parking space, please note that we understand the challenges, please drive around the hospital and park near Hospital Entrance 1. When you enter this entrance, you can ask a volunteer to direct or take you back to the surgical waiting area to check in. We appreciate everyone?s understanding of these expected challenges while we build for your future. Report to the Outpatient Waiting Room, entrance under the green pavilion located off [facility] [address], at time 0600_ on date _10/17/25_. Planned Procedure Time: 0730_.? Time changes happen often and if your time is changed the preop area will call you the afternoon before. - You and your visitor will be asked to self-screen and do not enter if you have any COVID symptoms. Please call surgeon if you need to reschedule. - A mask is optional within the hospital at this time. Patients may have clear liquids (water, carbonated beverages, clear teas, apple juice) until 3 hours prior to surgery with a maximum of 20 ounces. - No food from midnight until time of surgery and no smoking, or chewing tobacco (or any form of nicotine). No chewing gum, candy or mints. Take only the following medications with a SIP of water on the morning of surgery: ___NONE DO NOT STOP ANY OF YOUR OTHER PRESCRIPTION MEDICATIONS PRIOR TO SURGERY EXCEPT THE FOLLOWING Hold all vitamins and supplements for 3 days per anesthesiologist. Medications to discontinue per physician Date to take last dose Please no make-up, nail samoan, hairspray, perfume, deodorant, or body powder the day of surgery.? No jewelry (including any body piercings) or valuables the day of surgery, leave them at home.? Please take a shower or bath the night before, or the morning of, surgery with an antibacterial soap.? Wear comfortable, loose fitting clothing.? Children are encouraged to wear pajamas. - Jewelry must be removed prior to entering the operating room.? Rings and piercings that are not removed may be cut off. - The hospital will not accept responsibility for valuables.? - Please leave all valuables, including medications, at home the day of surgery. If you are going home after surgery, a licensed truck driver rubbish collector must drive you home.? - NO public transportation without another adult if you receive anesthesia. - We recommend that an adult stay with you for 24 hours following discharge. - We also recommend that you do not drive, make important decision, drink alcoholic beverages, or take any drugs that were not prescribed by your health care provider for at least 24 hours after your discharge time. For Pediatric surgeries, we recommend two adults accompany the child home. Follow any additional instructions given to you from your surgeon. Telephone instructions given to PATIENT_and asked if any additional questions and then verbalized understanding. Patient advised to call surgeon office or pre surgery nurse liaison [phone] if any additional questions.
--- NOTE | 2025-10-14 13:29 | PM.IMHP2 ---
H&P: HPI History of Present Illness Date/Time: 10/14/25 13:29 [age] old female presents for suction curettage for missed . She had inappropriately rising HCG levels and recent ultrasound showed 6 week with no cardiac activity. Chief Complaint: Missed Review of Systems Review of Systems: All systems reviewed & are unremarkable except as noted in HPI and below PMFSH Past Medical History Medical History Psoriasis Eczema Brown recluse spider bite Missed BMI 45.0-49.9, adult Depression Lyme disease (~2015) Encounter for removal of intrauterine contraceptive device History of thrombocytopenia Surgical History Surgical History History of gynecological procedure (02/27/16) steven iud insertion History of gynecological procedure (~11/2019) steven iud removal History of gynecological procedure (~12/2019) steven iud insertion Hx of dilation and curettage D&C - miscarriage @ 2 1/2 months H/O gastric sleeve S/P reconstruction of ligament of knee 2017 knee surgery MPFL reconstruction Family History Family History Grandparent Family history of lung cancer Father Family history of rheumatoid arthritis Leukemia Mother Family history of osteoarthritis Other Diabetes mellitus Family history of arthritis Hypertension Social History Social History Smoking status: Never smoker Second hand tobacco smoke exposure: No Alcohol intake: former Alcohol use details: 3 TIMES PER YEAR Substance use: never Substance use type: does not use Lack of Transportation: No Lack of Food: Never True Current Housing: I Have Housing Concerned About Future Housing: No Difficulty Paying Gas/Electric Bills: No Difficulty Paying for Meds: No Currently Unemployed: No Education: High School Diploma/GED Difficulty w/ Childcare or Family Care: No Living arrangements: with family Additional living arrangements comments: Occupation/Education: occupation 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 Gender identity (if verbalized by the patient): Female Sexual Orientation (if Verbalized by the Patient): Straight or Heterosexual Meds Home Medications and Allergies Home Medications ?Medication ?Instructions ?Recorded ?Confirmed ?Type vits no.126-ferrous fum 1 tablet PO DAILY 09/15/25 10/13/25 History 28 mg iron-folic acid 800 mcg tablet (Classic ) amoxicillin 500 mg-potassium 1 tablet PO Q12H #20 tabs 10/10/25 10/13/25 Rx clavulanate 125 mg tablet (Augmentin) Allergies Allergy/AdvReac Type Severity Reaction Status Date / Time azithromycin Allergy Severe Other Verified 10/13/25 15:23 ciprofloxacin Allergy Unknown Rash Verified 10/13/25 15:23 Sulfa (Sulfonamide Allergy Unknown Anaphylactic Verified 10/13/25 15:23 Antibiotics) Shock vancomycin AdvReac Severe Redness of Verified 10/13/25 15:23 Skin Exam Const: General: cooperative and healthy appearing Resp: Effort & Inspection: normal respiratory effort Auscultation: clear to auscultation bilaterally Cardio: Rate: regular rate Rhythm: regular rhythm GI: Inspection: normal to inspection Auscultation: normal bowel sounds : External Female Exam: normal external appearance Speculum Exam - Vagina: normal appearance of the vagina Speculum Exam - Cervix: normal appearance of the cervix Bimanual exam- vagina & uterus: enlarged (6-8 week size) Bimanual Exam- Adnexa, other: normal adnexae Assessment and Plan Assessment and plan (1) Missed with demise before 20 completed weeks of gestation: Code(s): O02.1 - Missed Status: Acute Assessment and Plan: Proceed with suction curettage
--- OUTSIDE RECORDS SUMMARY | 2025-10-17 00:34 | XMS_ITS | Clinical Summary ---
Author Organization [facility] Address [address] [place] [id number] Care Team Providers Care Leak Patcher Name Role Phone Unavailable Primary Care Provider [...]
--- NOTE | 2025-10-17 06:46 | P.PNAN_ITS ---
Anes - Initial Pre Proc Eval Procedure: Operation Date: 10/17/25 07:30 Proposed Procedures p Suction Dilation and Curettage - Cristian Peng MD Date/Time: 10/17/25 06:46 Surgeon: Cristian Peng MD Pre Op Diagnosis: missed ab Patient Data Age: 35 Gender: F Height: 1.7 m Weight: 125 kg Allergies Allergy/AdvReac Type Severity Reaction Status Date / Time azithromycin Allergy Severe Other Verified 10/13/25 15:23 ciprofloxacin Allergy Unknown Rash Verified 10/13/25 15:23 Sulfa (Sulfonamide Allergy Unknown Anaphylactic Verified 10/13/25 15:23 Antibiotics) Shock vancomycin AdvReac Severe Redness of Verified 10/13/25 15:23 Skin Home Medications ?Medication ?Instructions ?Recorded ?Confirmed ?Type vits no.126-ferrous fum 1 tablet PO DAILY 10/13/25 History 28 mg iron-folic acid 800 mcg tablet (Classic ) amoxicillin 500 mg-potassium 1 tablet PO Q12H #20 tabs 10/10/25 10/13/25 Rx clavulanate 125 mg tablet (Augmentin) Patient hx anesthesia problems: none Family hx anesthesia problems: none Results Review: All pre-operative results and documents have been reviewed as part of the pre- operative evaluation. [facility] Past Medical History Medical History Psoriasis Eczema Brown recluse spider bite Missed BMI 45.0-49.9, adult Depression Lyme disease (~2015) Encounter for removal of intrauterine contraceptive device History of thrombocytopenia Surgical History Surgical History History of gynecological procedure (02/27/16) steven iud insertion History of gynecological procedure (~11/2019) steven iud removal History of gynecological procedure (~12/2019) steven iud insertion Hx of dilation and curettage D&C - miscarriage @ 2 1/2 months H/O gastric sleeve S/P reconstruction of ligament of knee 2017 knee surgery MPFL reconstruction Family History Family History Grandparent Family history of lung cancer Father Family history of rheumatoid arthritis Leukemia Mother Family history of osteoarthritis Other Diabetes mellitus Family history of arthritis Hypertension Social History Social History Smoking status: Never smoker Second hand tobacco smoke exposure: No Alcohol intake: former Alcohol use details: 3 TIMES PER YEAR Substance use: never Substance use type: does not use Lack of Transportation: No Lack of Food: Never True Current Housing: I Have Housing Concerned About Future Housing: No Difficulty Paying Gas/Electric Bills: No Difficulty Paying for Meds: No Currently Unemployed: No Education: High School Diploma/GED Difficulty w/ Childcare or Family Care: No Living arrangements: with family Additional living arrangements comments: Occupation/Education: occupation 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 Gender identity (if verbalized by the patient): Female Sexual Orientation (if Verbalized by the Patient): Straight or Heterosexual Anes - Eval Final PreProcedure Day of Procedure 10/17/25 06:46 Patient weight: morbidly obese Heart: regular rate and rhythm Lungs: clear to auscultation Airway: Mallampati scale class II Neurological: alert and oriented Last oral intake: >/= 8 hours ASA classification: III Emergent: no Anesthetic plan: proceed Anesthesia type and monitoring: general GIVS and standard monitoring Results Review: All pre-operative results and documents have been reviewed as part of the pre- operative evaluation. Informed Consent: The patient's anesthetic plan and its attendant risks and benefits were discussed with the patient/family/POA. Questions were solicited and answers provided to the satisfaction of the patient/family/POA.
[2025-10-17 07:00] VITALS: BP 129/63; PULSE 76; RESP 16; TEMP 36.7; O2SAT 100
[2025-10-17] MEDS: LACTATED RINGERS 1,000 ML 30 ML IV CONT (07:00)
[2025-10-17] MEDS: ACETAMINOPHEN 500 MG TABLET 1000 MG PO (07:00)
--- NOTE | 2025-10-17 07:25 | WPDHPUPDATE1 ---
History and Physical Update Update Date/Time: 10/17/25 07:25 History and Physical has been reviewed, including an updated exam of the patient. There are NO changes in the patient's condition. Risks, benefits, and alternatives have been discussed and questions answered. Patient agrees to proceed with procedure.
--- NOTE | 2025-10-17 07:44 | S_PTH ---
PATIENT: Lakisha Salcido LOC: [facility] U#:[id number] AGE/SX: 35/F ROOM: RE10/17/[address]: Cristian Peng MD : [id number] BED: DIS: 10/17/2025 SPEC #: [id number] RECD: 10/17/25 10:08 STATUS: GEORGE RERamón #: [id number] SADE: 10/17/25 07:[address]: Cristian Peng DEPT: [facility] Surgical RECD BY: Rosalie Robb ENTERED: 10/17/25 10:08 SP TYPE: Surgical OTHR DR: Dawson Barron MD Tissues: A - Products of Conception Procedures: Hematoxylin and Eosin Stain Gross and Microscopic Level 4
[2025-10-17] MEDS: KETOROLAC 30 MG/ML VIAL (*BKC) IV PUSH (07:50)
--- NOTE | 2025-10-17 07:51 | W.PM.PROC2 ---
Procedure Note - Detailed Date of Procedure 10/17/25 Pre-op Diagnosis missed ab Post-op Diagnosis Same Procedure Performed Suction curettage Surgeon Cristian Peng MD Anesthesia MAC Findings Moderate retained products of conception Description of Procedure Patient prepped and draped usual manner for this procedure. Uterus was sounded to 10cm. Cervix dilated to allow a 9mm suction curette to placed. This was placed without difficulty and suction curetting in removed tissue mass with minimal bleeding. Sharp curette throughout with no significant bleeding and no tissue remaining. At this point the procedure was considered terminated and the patient was sent to the recovery room in stable condition. Estimated Blood Loss 20 Drains No Packing No Pathology Yes Complications No immediate complications Condition Stable Disposition PACU [facility] Billing Surgery - Charge Forward: Surgery Billing
[2025-10-17 07:59] VITALS: BP 112/58; PULSE 84; RESP 16; O2SAT 98
[2025-10-17 08:15] VITALS: BP 131/64; PULSE 64; RESP 18; O2SAT 100
[2025-10-17] MEDS: fentaNYL CITRATE INJ (*CRX) 100 MCG/2 ML VIAL 25 MCG IV PUSH ×4 (08:21→08:35)
[2025-10-17 08:30] VITALS: BP 126/69; PULSE 62; RESP 16; O2SAT 100
[2025-10-17] MEDS: oxyCODONE HCL (*CRX) 5 MG TAB IR PO (08:50)
[2025-10-17 09:10] VITALS: BP 103/56; PULSE 66
== END 2025-10-17 09:35 | disposition home or self-care (01) ==
PROVIDERS: PCP Family Medicine; Visit Provider Obstetrics & Gynecology
PROC: (CPT 59820; principal; 2025-10-17 07:30)
DX: O02.1 Missed abortion (principal); M79.81 Nontraumatic hematoma of soft tissue; D69.6 Thrombocytopenia, unspecified; F32.A Depression, unspecified; A69.20 Lyme disease, unspecified; L40.9 Psoriasis, unspecified; Z98.890 Other specified postprocedural states; Z98.84 Bariatric surgery status; Z80.1 Family history of malignant neoplasm of trachea, bronchus and lung; Z80.6 Family history of leukemia
CPT/HCPCS: 59820; 88305; A9270; J1885; J2003; J2250; J2704; J3010; J7120